=== PATIENT | female | born 1955 | race American Indian/Alaskan Native ===

== ENCOUNTER → 2018-01-09 | Outpatient (CLI) | payer OTHER ==
[~2018-01-09] MED LIST: SYNTHROID88 MCG
== END | disposition home or self-care (01) ==
LOC: LAB 09:41
DX: C18.2 Malignant neoplasm of ascending colon (principal); M81.6 Localized osteoporosis [Lequesne]; D50.0 Iron deficiency anemia secondary to blood loss (chronic)

== ENCOUNTER 2018-01-12 12:29 | Outpatient (CLI) | payer OTHER | END 2018-01-12 12:33 | disposition home or self-care (01) | LOC: LAB 12:29 | DX: C18.2 Malignant neoplasm of ascending colon (principal); M81.6 Localized osteoporosis [Lequesne]; D50.0 Iron deficiency anemia secondary to blood loss (chronic) ==

== ENCOUNTER 2018-05-02 10:28 | Outpatient (CLI) | payer OTHER | END 2018-05-02 10:38 | disposition home or self-care (01) | LOC: RAD 10:28 | DX: C18.2 Malignant neoplasm of ascending colon (principal); Z51.12 Encounter for antineoplastic immunotherapy; D69.59 Other secondary thrombocytopenia; D61.810 Antineoplastic chemotherapy induced pancytopenia; K27.3 Acute peptic ulcer, site unspecified, without hemorrhage or perforation; C18.9 Malignant neoplasm of colon, unspecified; M25.561 Pain in right knee; M25.562 Pain in left knee ==

== ENCOUNTER 2018-05-03 10:50 | Outpatient (CLI) | payer OTHER | END 2018-05-03 10:55 | disposition home or self-care (01) | LOC: LAB 10:50 | DX: D61.810 Antineoplastic chemotherapy induced pancytopenia (principal); D69.59 Other secondary thrombocytopenia; C18.2 Malignant neoplasm of ascending colon ==

== ENCOUNTER → 2018-05-07 | Outpatient (CLI) | payer OTHER | END | disposition home or self-care (01) | LOC: LAB 16:23 | DX: C18.2 Malignant neoplasm of ascending colon (principal); Z51.12 Encounter for antineoplastic immunotherapy; D61.810 Antineoplastic chemotherapy induced pancytopenia; D69.59 Other secondary thrombocytopenia; K27.3 Acute peptic ulcer, site unspecified, without hemorrhage or perforation ==

== ENCOUNTER → 2019-05-01 | Outpatient (CLI) | payer OTHER | END | disposition home or self-care (01) | LOC: MAMO-SONO 10:45 | DX: D69.59 Other secondary thrombocytopenia (principal); K27.3 Acute peptic ulcer, site unspecified, without hemorrhage or perforation; C18.2 Malignant neoplasm of ascending colon; Z51.12 Encounter for antineoplastic immunotherapy; D61.810 Antineoplastic chemotherapy induced pancytopenia; Z12.31 Encounter for screening mammogram for malignant neoplasm of breast ==